=== PATIENT | male | born 1990 | race African-American/Black ===

== ENCOUNTER 2017-03-21 17:49 | Emergency (ER) | payer OTHER ==
[2017-03-21 17:52] VITALS: BMI 17.6
--- NOTE | 2017-03-21 18:24 | PDOC ---
Attending Attestation - HPI HPI: 03/21/17 19:08 The patient is a 27 year old male, with a significant past medical history of pancreatitis (possibly 2/2 alcohol), who presents to the emergency department with, 4 days of emesis and associated abdominal pain, decreased food intake, and a fever. He reports that his son had a episodes of emesis several days prior to him. Documentation prepared by Ulisses Solano, acting as medical professionals for Pj Sutton MD. - Medical Decision Making EXAM: CT ABDOMEN AND PELVIS with contrast FINDINGS: Lung bases are clear. The visualized cardiac chambers are normal size and configuration. Normal liver, gallbladder, pancreas, spleen, adrenal glands and kidneys. The stomach and abdominal small and large bowel are normal. There is no aortic aneurysm. There is no significant retroperitoneal lymphadenopathy. The pelvic small and large bowel are normal. There is no evidence of appendicitis although the appendix is only questionably seen. The urinary bladder and prostate gland are normal. Small amount of pelvic free fluid is identified. There is no significant pelvic lymphadenopathy. IMPRESSION: Small amount of pelvic free fluid is nonspecific, potentially physiologic. No other localizing signs for acute pathology. Read by:Rodriguez Gordon MD <Ulisses Solano - Last Filed: 03/21/17 23:44> - Resident Resident Name: Santhosh Muñoz - ED Attending Attestation I have performed the following: I have examined & evaluated the patient, The case was reviewed & discussed with the resident, I agree w/resident's findings & plan, Exceptions are as noted - Physicial Exam PE: 03/21/17 19:23 Patient is awake and alert, nontoxic-appearing, in mild distress. nc, atr perrla, eomi, no scleral icterus mm-dry cta rrr Soft, nondistended, mild to moderate left lower quadrant, epigastric, periumbilical, and right lower quadrant tenderness to palpation, no guarding rebound, no CVA tenderness bilaterally; no palpable hernias bilaterally; No lower extremity edema particularly rash; - Medical Decision Making 03/21/17 19:24 Patient's 27-year-old male who presents with diffuse abdominal pain, low-grade fever, persistent nausea and nonbloody, nonbilious vomiting for the past 4 days. Differential diagnoses includes gastroenteritis versus pancreatitis versus appendicitis versus diverticulitis. Will aggressively hydrate, we'll obtain CBC/CMP/lipase/urinalysis. We'll administer pain meds and antiemetic therapy. Will obtain CT of abdomen and pelvis with by mouth and IV contrast. Will reassess. 03/22/17 00:[address] of abdomen and pelvis is noted to be without acute pathology without direct or indirect evidence of acute appendicitis. CBC reveals increased leukocytosis of 15,000 with a normal differential. CMP and lipase within normal limit. He was brought to my attention that the patient had been seen one day previously in this ER under a different name. [facility] and they investigated the matter at bedside. Repeat abdominal exam reveals no significant tenderness to palpation. Patient tolerated by mouth liquids and will be discharged with antiemetics and Maalox. <Pj Sutton - Last Filed: 03/22/17 00:14>
[2017-03-21] MEDS ORDERED: ONDANSETRON 4 MG/2 ML VIAL ONE (18:36)
[2017-03-21] MEDS ORDERED: SODIUM CHLORIDE 1,000 ML IV STA ×2 (18:36→18:37)
[2017-03-21] MEDS ORDERED: MAG HYDROX/AL HYDROX/SIMETH 30 ML UNIT-DOSE CUP ONE (18:36)
[2017-03-21] MEDS ORDERED: FAMOTIDINE 20 MG/50 ML IVPB 20 MG/50 ML MG IVPB ONE (18:36)
[2017-03-21] MEDS ORDERED: ONDANSETRON 4 MG/2 ML VIAL IVPUSH ONE (18:36)
[2017-03-21] MEDS ORDERED: MAG HYDROX/AL HYDROX/SIMETH 30 ML UNIT-DOSE CUP PO ONE (18:37)
[2017-03-21] MEDS ORDERED: ACETAMINOPHEN 1000 MG/100 ML VIAL (NON FORMULARY) IVPB ONE (18:42)
[2017-03-21] MEDS ORDERED: ACETAMINOPHEN INJECTION 100 ML IVPB ONE (18:48)
--- NOTE | 2017-03-21 18:49 | PDOC ---
History of Present Illness - General Chief Complaint: Nausea/Vomiting Stated Complaint: FATIGUE Time Seen by Provider: 03/21/17 18:08 History Source: Patient Exam Limitations: No Limitations - History of Present Illness Initial Comments: 03/21/17 18:48 Patient is a 27M with history of pancreatitis (possibly 2/2 alcohol) here today complaining of 4 days of vomiting and associated abdominal pain, decreased po intake and fever. He states that his son had a few episodes of vomiting several days prior to him. The abdominal pain is diffusely located. He states that he hasn't had a bowel movement in three days, but also says that he hasn't eaten much in the past three days. He says that he hasn't really been urinating either. He reports that his last drink was on [place]. Past History - Past Medical History Allergies/Adverse Reactions: Allergies Allergy/AdvReac Type Severity Reaction Status Date / Time No Known Allergies Allergy Verified 03/21/17 17:52 Home Medications: Ambulatory Orders Ondansetron [Zofran *Odt*] 8 mg SL BID PRN #10 od.tablet 03/21/17 COPD: No - Suicide/Smoking/Psychosocial Hx Smoking History: Current every day smoker Number of Cigarettes Smoked Daily: 2 Information on smoking cessation initiated: No Hx Alcohol Use: No Drug/Substance Use Hx: No Substance Use Type: None Review of Systems - Review of Systems Comments:: 03/21/17 19:04 GENERAL/CONSTITUTIONAL: Positive for fever, chills and weakness HEAD, EYES, EARS, NOSE AND THROAT: No change in vision. No sore throat. CARDIOVASCULAR: No chest pain or shortness of breath RESPIRATORY: No cough, wheezing, or hemoptysis. GASTROINTESTINAL: Positive for nausea and vomiting. GENITOURINARY: No dysuria, frequency, or change in urination. MUSCULOSKELETAL: Positive for diffuse body aches. SKIN: No rash NEUROLOGIC: Positive for headache. Negative for vertigo, loss of consciousness, or change in strength/sensation. ENDOCRINE: No increased thirst. No abnormal weight change HEMATOLOGIC/LYMPHATIC: No anemia, easy bleeding, or history of blood clots. *Physical Exam - Vital Signs Last Vital Signs Temp Pulse Resp BP Pulse Ox 99.1 F 99 H 20 136/72 100 03/21/17 17:49 03/21/17 17:49 03/21/17 17:49 03/21/17 17:49 03/21/17 17:49 - Physical Exam Comments: 03/21/17 19:06 GENERAL: Awake, alert, and fully oriented, in no acute distress HEAD: No signs of trauma, normocephalic, atraumatic EYES: PERRLA, EOMI, sclera anicteric, conjunctiva clear ENT: Auricles normal inspection, hearing grossly normal, nares patent, oropharynx clear without exudates. Dry mucosa NECK: Normal ROM, supple, no lymphadenopathy, JVD, or masses LUNGS: No distress, speaks full sentences, clear to auscultation bilaterally HEART: Regular rate and rhythm, normal S1 and S2, no murmurs, rubs or gallops, peripheral pulses normal and equal bilaterally. ABDOMEN: Soft, diffusely tender, normoactive bowel sounds. No guarding, no rebound. No peritoneal signs. EXTREMITIES: Normal inspection, Normal range of motion, no edema. NEUROLOGICAL: Cranial nerves II through XII grossly intact. Normal speech, no focal sensorimotor deficits SKIN: Warm, Dry, normal turgor, no rashes or lesions noted. ED Treatment Course - LABORATORY CBC & Chemistry Diagram: 03/21/17 18:45 03/21/17 18:45 Medical Decision Making - Medical Decision Making 03/21/17 19:07 27M with history of pancreatitis here today with abd pain, nausea, vomiting, and fever. Vital signs notable for heart rate of 99. Temp only 99.1 orally, but patient was just coming in from sub-freezing temperatures. Patient is very dry. Differential diagnosis includes, but is not limited to: pancreatitis, cyclical vomiting syndrome, diverticulitis, appendicitis. Will treat with zofran, 2L NS, morphine, pepcid, maalox. Will evaluate with labs and ct scan with po/iv contrast. 03/21/17 20:11 Laboratory Tests 03/21/17 03/21/17 18:45 18:45 WBC 15.8 H Hgb 14.5 Hct 44.2 Plt Count 185 BUN 14 Creatinine 1.1 Lipase 337 CBC shows leukocytosis. CMP normal. Lipase negative. 03/21/17 20:42 Flu negative. 03/21/17 23:21 Patient presented to ED yesterday for similar complaint under different name. [employer] involved. 12/30/17 23:52 Patient keeping PO down, got gatorade. CT abd/pelvis negative. Will discharge with prescription for zofran odt and return precautions. 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 Advised that this was a relapse. Differential for cause of his vomiting is cyclical vomiting due history of marijuana use and viral illness. *DC/Admit/Observation/Transfer Diagnosis at time of Disposition: Abdominal pain - Discharge Dispostion Disposition: HOME Condition at time of disposition: Good Admit: No - Prescriptions Prescriptions: Ondansetron [Zofran *Odt*] 8 mg SL BID PRN #10 od.tablet PRN Reason: Nausea - Referrals - Patient Instructions Printed Discharge Instructions: DI for Abdominal Pain-Adult - Post Discharge Activity
[2017-03-21 18:53] LABS: BASO % 0.2 % (0-2.0); EOS % 0.1 % (0-4.5); HEMATOCRIT 44.2 % (35.4-49); HEMOGLOBIN 14.5 GM/dL (11.7-16.9); LYMPH % 6.8 % (8-40); MCH 27.5 pg (25.7-33.7); MCHC 32.7 g/dl (32.0-35.9); MEAN CELL VOLUME 83.9 fl (80-96); MEAN PLT VOLUME 9.2 fl (7.5-11.1); MONO % 11.9 % (3.8-10.2); PLATELET COUNT 185 K/MM3 (134-434); RBC 5.26 M/mm3 (4.00-5.60); RDW 13.8 % (11.9-15.9); WHITE BLOOD COUNT 15.8 K/mm3 (4.0-10.0)
[2017-03-21] MEDS ORDERED: morphine CARPU-JECT 4 MG/1 ML DISP.SYRIN IVPUSH ONE (19:01)
[2017-03-21] MEDS ORDERED: morphine CARPU-JECT 10 MG/1 ML DISP.SYRIN ONE (19:04)
[2017-03-21 19:17] LABS: ALBUMIN 4.2 g/dl (3.4-5.0); ANION GAP 8 (8-16); BLOOD UREA NITROGEN 14 mg/dL (7-18); CALCIUM 9.4 mg/dL (8.5-10.1); CHLORIDE 102 mmol/L (98-107); CO2 30 mmol/L (21-32); CREATININE 1.1 mg/dL (0.7-1.3); GLUCOSE,RANDOM 88 mg/dL (74-106); POTASSIUM 3.6 mmol/L (3.5-5.1); SGOT/AST 12 U/L (15-37); SGPT/ALT 18 U/L (12-78); SODIUM 140 mmol/L (136-145); TOT PROT 7.5 g/dl (6.4-8.2)
[2017-03-21 19:18] LABS: ALK PHOS 68 U/L (45-117)
[2017-03-21 19:20] LABS: LIPASE 337 U/L (73-393)
[2017-03-21] MEDS ORDERED: METOCLOPRAMIDE HCL INJECTION 10 MG/2 ML VIAL IVPUSH ONE (22:29)
[2017-03-21] MEDS ORDERED: METOCLOPRAMIDE HCL INJECTION 10 MG/2 ML VIAL ONE (22:34)
[2017-03-22 00:15] VITALS: BP 134/70; PULSE 87; TEMP 98.6
== END 2017-03-22 00:15 | disposition home or self-care (01) ==
LOC: JER 17:49
PROC: 3E0337Z Introduction of Electrolytic and Water Balance Substance into Peripheral Vein, Percutaneous Approach (ICD-10-PCS; principal; 2017-03-21)
PROC: 3E033GC Introduction of Other Therapeutic Substance into Peripheral Vein, Percutaneous Approach (ICD-10-PCS; 2017-03-21)
PROC: 3E033GC Introduction of Other Therapeutic Substance into Peripheral Vein, Percutaneous Approach (ICD-10-PCS; 2017-03-21)
PROC: 3E033GC Introduction of Other Therapeutic Substance into Peripheral Vein, Percutaneous Approach (ICD-10-PCS; 2017-03-21)
PROC: 3E033NZ Introduction of Analgesics, Hypnotics, Sedatives into Peripheral Vein, Percutaneous Approach (ICD-10-PCS; 2017-03-21)
PROC: 3E033NZ Introduction of Analgesics, Hypnotics, Sedatives into Peripheral Vein, Percutaneous Approach (ICD-10-PCS; 2017-03-21)
DX: R10.84 Generalized abdominal pain (principal); Z87.19 Personal history of other diseases of the digestive system
CPT/HCPCS: 36415; 74177-TC; 80053; 83690; 85025; 87804; 99283-25; J0131; J7030